=== PATIENT | female | born 1960 | race Caucasian/White ===

== ENCOUNTER 2018-04-01 16:48 | Outpatient (CLI) | payer OTHER | END 2018-04-01 16:49 | disposition short-term general hospital (02) | LOC: EMS 16:48 | PROVIDERS: ATTEND Surgery | DX: R42 Dizziness and giddiness (principal) | CPT/HCPCS: A0425; A0427 ==

== ENCOUNTER 2020-11-17 14:30 | Outpatient (CLI) | payer BC, OTHER | END 2020-11-17 23:59 | disposition home or self-care (01) | LOC: LAB.S 14:30 | PROVIDERS: ATTEND Physician Assistant | DX: B34.9 Viral infection, unspecified (principal); Z20.822 Contact with and (suspected) exposure to COVID-19 ==